=== PATIENT | female | born 1955 | race Caucasian/White ===

== ENCOUNTER 2021-03-09 11:08 | Emergency (ER) | payer MEDICARE ==
[2021-03-09 11:29] VITALS: TEMP 98.3
[2021-03-09] MEDS ORDERED: SODIUM CHLORIDE 0.9% 1,000 ML IV ONE (11:49)
--- NOTE | 2021-03-09 11:54 | ED ---
General Adult HPI - General Chief complaint: Altered Mental Status Stated complaint: altered Time Seen by Provider: 03/09/21 11:28 Source: patient, EMS, RN notes reviewed Mode of arrival: EMS Limitations: no limitations - History of Present Illness Initial comments: Patient is a pleasant 65-year-old female presenting to the emergency department with change in mental status. Patient does have dementia and is not been taking her medications recently. Patient reportedly is also becoming more aggressive at home. Patient states she feels fine and has no complaints. Patient is unclear why she is here. Patient states other than today she has been taking her medications. - Related Data Home Medications Medication Instructions Recorded Confirmed Donepezil [Aricept] 10 mg PO DAILY 03/09/21 03/09/21 FLUoxetine HCL [PROzac] 20 mg PO DAILY 03/09/21 03/09/21 Memantine [Namenda] 10 mg PO BID 03/09/21 03/09/21 Allergies Allergy/AdvReac Type Severity Reaction Status Date / Time No Known Allergies Allergy Verified 03/09/21 12:55 Review of Systems ROS Statement: Those systems with pertinent positive or pertinent negative responses have been documented in the HPI. ROS Other: All systems not noted in ROS Statement are negative. Constitutional: Denies: fever Eyes: Denies: eye pain ENT: Denies: ear pain Respiratory: Denies: cough Cardiovascular: Denies: chest pain Endocrine: Denies: fatigue Gastrointestinal: Denies: abdominal pain Genitourinary: Denies: dysuria Musculoskeletal: Denies: back pain Skin: Denies: rash Neurological: Reports: confusion. Denies: weakness Psychiatric: Reports: as per HPI Past Medical History Past Medical History: Dementia, Hypertension History of Any Multi-Drug Resistant Organisms: None Reported Past Surgical History: Unable to Obtain Past Psychological History: No Psychological Hx Reported Smoking Status: Never smoker Past Alcohol Use History: None Reported Past Drug Use History: Marijuana General Exam Limitations: no limitations General appearance: alert, in no apparent distress Head exam: Present: normocephalic Eye exam: Present: normal appearance, PERRL, EOMI. Absent: nystagmus ENT exam: Present: normal oropharynx Neck exam: Present: normal inspection Respiratory exam: Present: normal lung sounds bilaterally Cardiovascular Exam: Present: regular rate, normal rhythm GI/Abdominal exam: Present: soft. Absent: tenderness Extremities exam: Present: normal inspection, full ROM. Absent: tenderness Neurological exam: Present: alert, CN II-XII intact. Absent: motor sensory def icit Expanded Neurological exam: Present: protecting the airway Patient oriented to: Present: person, place. Absent: time Speech: Present: fluid speech Cranial nerves: EOM's Intact: Normal Motor strength exam: RUE: 5, LUE: 5, RLE: 5, LLE: 5 Eye Response: (4) open spontaneously Motor Response: (6) obeys commands Verbal Response: (4) confused conversation Psychiatric exam: Present: normal affect, normal mood Skin exam: Present: normal color Course Vital Signs 03/09/21 03/09/21 11:26 13:55 Temperature 98.3 F Pulse Rate 80 79 Respiratory 18 16 Rate Blood Pressure 137/97 138/89 O2 Sat by Pulse 99 99 Oximetry EKG Findings - EKG Comments: EKG Findings:: Sinus rhythm with a rate of 68. HI 164. QRS 102. QT 454. QTC 42. Left axis. LVH criteria. No acute ST change. Medical Decision Making - Medical Decision Making Patient has been somewhat restless in the emergency department otherwise acting appropriately. Patient seen by mental health services who did not feel that patient meets criteria for psychiatric inpatient care. Case also discussed with Dr. Jalloh who also feels patient does not necessitate inpatient medical care. 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 They will be provided resources to home with. - Lab Data Result diagrams: 03/09/21 11:52 03/09/21 11:52 Lab Results 03/09/21 03/09/21 03/09/21 Range/Units 11:34 11:35 11:52 WBC 5.8 (3.8-10.6) k/uL RBC 4.46 (3.80-5.40) m/uL Hgb 14.0 (11.4-16.0) gm/dL Hct 39.9 (34.0-46.0) % MCV 89.4 (80.0-100.0) fL MCH 31.3 (25.0-35.0) pg MCHC 35.0 (31.0-37.0) g/dL RDW 12.9 (11.5-15.5) % Plt Count 232 (150-450) k/uL MPV 7.6 Neutrophils % 40 % Lymphocytes % 50 % Monocytes % 6 % Eosinophils % 1 % Basophils % 1 % Neutrophils # 2.3 (1.3-7.7) k/uL Lymphocytes # 2.9 (1.0-4.8) k/uL Monocytes # 0.3 (0-1.0) k/uL Eosinophils # 0.1 (0-0.7) k/uL Basophils # 0.1 (0-0.2) k/uL PT (9.0-12.0) sec INR (<1.2) APTT (22.0-30.0) sec Sodium (137-145) mmol/L Potassium (3.5-5.1) mmol/L Chloride (98-107) mmol/L Carbon Dioxide (22-30) mmol/L Anion Gap mmol/L BUN (7-17) mg/dL Creatinine (0.52-1.04) mg/dL Est GFR (CKD-EPI)AfAm (>60 ml/min/1.73 sqM) Est GFR (CKD-EPI)NonAf (>60 ml/min/1.73 sqM) Glucose (74-99) mg/dL Calcium (8.4-10.2) mg/dL Total Bilirubin (0.2-1.3) mg/dL AST (14-36) U/L ALT (4-34) U/L Alkaline Phosphatase (38-126) U/L Troponin I (0.000-0.034) ng/mL Total Protein (6.3-8.2) g/dL Albumin (3.5-5.0) g/dL Urine Color Light Red Urine Appearance Cloudy H (Clear) Urine pH 6.0 (5.0-8.0) Ur Specific [place] 1.032 (1.001-1.035) Urine Protein 1+ H (Negative) Urine Glucose (UA) Negative (Negative) Urine Ketones Negative (Negative) Urine Blood Moderate H (Negative) Urine Nitrite Negative (Negative) Urine Bilirubin Negative (Negative) Urine Urobilinogen 2.0 (<2.0) mg/dL Ur Leukocyte Esterase Small H (Negative) Urine RBC 2 (0-5) /hpf Urine WBC 4 (0-5) /hpf Ur Squamous Epith Cells 13 H (0-4) /hpf Urine Bacteria Rare H (None) /hpf Urine Mucus Many H (None) /hpf Urine Opiates Screen Not Detected (NotDetected) Ur Oxycodone Screen Not Detected (NotDetected) Urine Methadone Screen Not Detected (NotDetected) Ur Propoxyphene Screen Not Detected (NotDetected) Ur Barbiturates Screen Not Detected (NotDetected) U Tricyclic Antidepress Not Detected (NotDetected) Ur Phencyclidine Scrn Not Detected (NotDetected) Ur Amphetamines Screen Not Detected (NotDetected) U Methamphetamines Scrn Not Detected (NotDetected) U Benzodiazepines Scrn Not Detected (NotDetected) Urine Cocaine Screen Not Detected (NotDetected) U Marijuana (THC) Screen Detected H (NotDetected) Serum Alcohol mg/dL 03/09/21 03/09/21 03/09/21 Range/Units 11:52 11:52 11:52 WBC (3.8-10.6) k/uL RBC (3.80-5.40) m/uL Hgb (11.4-16.0) gm/dL Hct (34.0-46.0) % MCV (80.0-100.0) fL MCH (25.0-35.0) pg MCHC (31.0-37.0) g/dL RDW (11.5-15.5) % Plt Count (150-450) k/uL MPV Neutrophils % % Lymphocytes % % Monocytes % % Eosinophils % % Basophils % % Neutrophils # (1.3-7.7) k/uL Lymphocytes # (1.0-4.8) k/uL Monocytes # (0-1.0) k/uL Eosinophils # (0-0.7) k/uL Basophils # (0-0.2) k/uL PT 11.1 (9.0-12.0) sec INR 1.0 (<1.2) APTT 24.4 (22.0-30.0) sec Sodium 136 L (137-145) mmol/L Potassium 3.6 (3.5-5.1) mmol/L Chloride 104 (98-107) mmol/L Carbon Dioxide 21 L (22-30) mmol/L Anion Gap 11 mmol/L BUN 12 (7-17) mg/dL Creatinine 0.85 (0.52-1.04) mg/dL Est GFR (CKD-EPI)AfAm 83 (>60 ml/min/1.73 sqM) Est GFR (CKD-EPI)NonAf 72 (>60 ml/min/1.73 sqM) Glucose 90 (74-99) mg/dL Calcium 9.5 (8.4-10.2) mg/dL Total Bilirubin 1.1 (0.2-1.3) mg/dL AST 26 (14-36) U/L ALT 11 (4-34) U/L Alkaline Phosphatase 62 (38-126) U/L Troponin I 0.013 (0.000-0.034) ng/mL Total Protein 7.9 (6.3-8.2) g/dL Albumin 4.5 (3.5-5.0) g/dL Urine Color Urine Appearance (Clear) Urine pH (5.0-8.0) Ur Specific [place] (1.001-1.035) Urine Protein (Negative) Urine Glucose (UA) (Negative) Urine Ketones (Negative) Urine Blood (Negative) Urine Nitrite (Negative) Urine Bilirubin (Negative) Urine Urobilinogen (<2.0) mg/dL Ur Leukocyte Esterase (Negative) Urine RBC (0-5) /hpf Urine WBC (0-5) /hpf Ur Squamous Epith Cells (0-4) /hpf Urine Bacteria (None) /hpf Urine Mucus (None) /hpf Urine Opiates Screen (NotDetected) Ur Oxycodone Screen (NotDetected) Urine Methadone Screen (NotDetected) Ur Propoxyphene Screen (NotDetected) Ur Barbiturates Screen (NotDetected) U Tricyclic Antidepress (NotDetected) Ur Phencyclidine Scrn (NotDetected) Ur Amphetamines Screen (NotDetected) U Methamphetamines Scrn (NotDetected) U Benzodiazepines Scrn (NotDetected) Urine Cocaine Screen (NotDetected) U Marijuana (THC) Screen (NotDetected) Serum Alcohol <10 mg/dL - Radiology Data Radiology results: report reviewed (CT brain shows degenerative and nonspecific changes), image reviewed (Chest x-ray shows cardiomegaly. Questionable left upper lobe nodule.) Disposition Clinical Impression: Dementia Disposition: HOME SELF-CARE Condition: Stable Instructions (If sedation given, give patient instructions): Altered Mental Status (ED), Dementia (ED) Additional Instructions: You will need follow-up for questionable left-sided lung nodule. Please do follow-up to primary care physician in the next day or 2 for recheck. Return for fever, altered mental status, worsening or changing symptoms or other concerns. Please take your medications as prescribed. Is patient prescribed a controlled substance at d/c from ED?: No Referrals: Manuel Sánchez MD [STAFF PHYSICIAN] - 1-2 days Time of Disposition: 14:08
[2021-03-09 11:59] LABS: Appearance,Urine Cloudy (Clear); Bacteria,Urine Rare /hpf; Bilirubin,Urine Negative (Negative); Blood,Urine Moderate (Negative); Color,Urine Light Red; Glucose,Urine (UA) Negative (Negative); Ketones,Urine Negative (Negative); Leukocyte Esterase,Urine Small (Negative); Mucus,Urine Many /hpf; Nitrite,Urine Negative (Negative); Protein,Urine 1+ (Negative); RBC,Urine 2 /hpf (0-5); Specific Gravity,Urine 1.032 (1.001-1.035); Squamous Epithelial Cell,Urine 13 /hpf (0-4); WBC,Urine 4 /hpf (0-5)
[2021-03-09 12:06] LABS: Basophils # (A) 0.1 k/uL (0-0.2); Basophils % (A) 1 %; Eosinophils # (A) 0.1 k/uL (0-0.7); Eosinophils % (A) 1 %; HCT 39.9 % (34.0-46.0); Lymphocytes # (A) 2.9 k/uL (1.0-4.8); Lymphocytes % (A) 50 %; MCH 31.3 pg (25.0-35.0); MCV 89.4 fL (80.0-100.0); Mean Platelet Volume 7.6; Monocytes # (A) 0.3 k/uL (0-1.0); Monocytes % (A) 6 %; Neutrophils # (A) 2.3 k/uL (1.3-7.7); Neutrophils % (A) 40 %; Platelet Count 232 k/uL (150-450); RBC 4.46 m/uL (3.80-5.40); RDW 12.9 % (11.5-15.5); WBC 5.8 k/uL (3.8-10.6)
[2021-03-09 12:08] LABS: Amphetamine Screen,Urine Not Detected (NotDetected); Barbiturate Screen,Urine Not Detected (NotDetected); Benzodiazepines Screen,Urine Not Detected (NotDetected); Cocaine Screen,Urine Not Detected (NotDetected); Methadone Screen, Urine Not Detected (NotDetected); Opiate Screen,Urine Not Detected (NotDetected); Oxycodone Screen, Urine Not Detected (NotDetected); Phencyclidine Screen,Urine Not Detected (NotDetected); Tricyclic Antidepressant,Urine Not Detected (NotDetected); Urn Cannabinoid Scrn Detected (NotDetected)
[2021-03-09 12:15] LABS: Partial Thromboplastin Time 24.4 sec (22.0-30.0); Prothrombin Time 11.1 sec (9.0-12.0)
[2021-03-09 12:19] LABS: ALT 11 U/L (4-34); African American GFR (CKD) 83 (>60 ml/min/1.73 sqM); Albumin 4.5 g/dL (3.5-5.0); Alcohol <10 mg/dL; Anion Gap 11 mmol/L; Blood Urea Nitrogen 12 mg/dL (7-17); Calcium 9.5 mg/dL (8.4-10.2); Carbon Dioxide 21 mmol/L (22-30); Chloride 104 mmol/L (98-107); Glucose 90 mg/dL (74-99); Non-African American GFR(CKD) 72 (>60 ml/min/1.73 sqM); Sodium 136 mmol/L (137-145); Total Bilirubin 1.1 mg/dL (0.2-1.3); Total Protein 7.9 g/dL (6.3-8.2)
--- NOTE | 2021-03-09 12:25 | XR ---
EXAMINATION TYPE: XR chest 2V DATE OF EXAM: 03/09/2021 COMPARISON: NONE TECHNIQUE: PA and lateral views submitted. HISTORY: Altered mental status FINDINGS: The lungs are clear and there is no pneumothorax, pleural effusion, or focal pneumonia. The heart i s enlarged. There is hyperinflation and degenerative change of the spine. Vague nodular density left upper lobe measuring 1 cm. IMPRESSION: 1. Cardiomegaly without acute infiltrate or overt failure. However, vague nodular density left upper lobe treatment be evaluated with a short-term follow-up CT of the chest to exclude pulmonary nodule v ersus summation.
[2021-03-09 12:27] LABS: Potassium 3.6 mmol/L (3.5-5.1)
[2021-03-09 12:28] LABS: AST 26 U/L (14-36); Alkaline Phosphatase 62 U/L (38-126)
--- NOTE | 2021-03-09 12:33 | CT ---
EXAMINATION TYPE: CT brain wo con DATE OF EXAM: 03/09/2021 COMPARISON: None HISTORY: ams, confusion CT DLP: 1182.4 mGycm Automated exposure control for dose reduction was used. FINDINGS: Moderate generalized degenerative change low-attenuation white matter. No midline shift or mass effect. No acute hemorrhage. Calvarium intact. Orbits. Craniocervical junction maintained. Sella turcica is normal. Intracranial a therosclerotic changes noted. IMPRESSION: DEGENERATIVE AND NONSPECIFIC WHITE MATTER CHANGES NO ACUTE HEMORRHAGE OR MASS EFFECT. IF CLINICAL CONCERN FOR ACUTE ISCHEMIA CORRELATE WITH MRI CLINICALLY WARRANTED.
[2021-03-09 13:56] VITALS: BP 138/89; PULSE 79; RESP 16
== END 2021-03-09 14:32 | disposition home or self-care (01) ==
LOC: EC 11:08
DX: F03.90 Unspecified dementia, unspecified severity, without behavioral disturbance, psychotic disturbance, mood disturbance, and anxiety (principal); I10 Essential (primary) hypertension; F12.90 Cannabis use, unspecified, uncomplicated; Z79.899 Other long term (current) drug therapy
CPT/HCPCS: 36415; 93005; 80053; 84484; 85025; 85610; 85730; 81001; 80306; 71046; 70450; 99285; G0480; 80320

== ENCOUNTER 2021-05-19 06:09 | Inpatient (IN) | payer MEDICARE ==
[2021-05-19] MEDS ORDERED: SODIUM CHLORIDE 0.9% 1,000 ML IV STA (06:21)
--- NOTE | 2021-05-19 06:31 | ED ---
Altered Mental Status HPI - General Chief Complaint: Recheck/Abnormal Lab/Rx Stated Complaint: Altered mental status Time Seen by Provider: 05/19/21 06:16 Source: EMS, RN notes reviewed, old records reviewed Mode of arrival: EMS Limitations: altered mental status - Related Data Home Medications Medication Instructions Recorded Confirmed Donepezil [Aricept] 10 mg PO DAILY 03/09/21 03/09/21 FLUoxetine HCL [PROzac] 20 mg PO DAILY 03/09/21 03/09/21 Memantine [Namenda] 10 mg PO BID 03/09/21 03/09/21 Allergies Allergy/AdvReac Type Severity Reaction Status Date / Time No Known Allergies Allergy Verified 05/19/21 06:19 Review of Systems ROS Statement: Those systems with pertinent positive or pertinent negative responses have been documented in the HPI. ROS Other: All systems not noted in ROS Statement are negative. Past Medical History Past Medical History: Dementia, Hypertension History of Any Multi-Drug Resistant Organisms: None Reported Past Surgical History: Unable to Obtain Past Psychological History: No Psychological Hx Reported Smoking Status: Never smoker Past Alcohol Use History: None Reported Past Drug Use History: Marijuana General Exam - General Exam Comments Initial Comments: A and 0 times one history of same, dementia Limitations: altered mental status General appearance: alert, in no apparent distress Head exam: Present: atraumatic, normocephalic, normal inspection Eye exam: Present: normal appearance, PERRL, EOMI. Absent: scleral icterus, conjunctival injection, periorbital swelling ENT exam: Present: normal exam, mucous membranes moist Neck exam: Present: normal inspection. Absent: tenderness, meningismus, lymphadenopathy Respiratory exam: Present: normal lung sounds bilaterally. Absent: respiratory distress, wheezes, rales, rhonchi, stridor Cardiovascular Exam: Present: regular rate, normal rhythm, normal heart sounds. Absent: systolic murmur, diastolic murmur, rubs, gallop, clicks GI/Abdominal exam: Present: soft, normal bowel sounds. Absent: distended, tenderness, guarding, rebound, rigid Extremities exam: Present: normal inspection, full ROM, normal capillary refill. Absent: tenderness, pedal edema, joint swelling, calf tenderness Back exam: Present: normal inspection Neurological exam: Present: alert, oriented X3, CN II-XII intact Psychiatric exam: Present: normal affect, normal mood Skin exam: Present: warm, dry, intact, normal color. Absent: rash Course Vital Signs 05/19/21 06:15 Temperature 98 F Pulse Rate 87 Respiratory 18 Rate Blood Pressure 98/76 O2 Sat by Pulse 100 Oximetry - Reevaluation(s) Reevaluation #1: 05/19/21 07:19 Medical record is reviewed Reevaluation #2: 05/19/21 07:19 No change in patient's appearance of symptoms here in the ER - Consultations Consultation #1: Spoke with sound physicians who agree to admit the patient Medical Decision Making - Medical Decision Making 65 female today for evaluation of altered mental status and appropriate behavior severe dementia patient unable to provide history patient's is in the hospital unable help take care of patient. Patient be admitted for continued medical evaluation and social console - Lab Data Result diagrams: 05/19/21 06:36 Lab Results 05/19/21 05/19/21 Range/Units 06:36 06:36 WBC 4.2 (3.8-10.6) k/uL RBC 3.65 L (3.80-5.40) m/uL Hgb 11.7 (11.4-16.0) gm/dL Hct 34.6 (34.0-46.0) % MCV 94.6 (80.0-100.0) fL MCH 32.1 (25.0-35.0) pg MCHC 34.0 (31.0-37.0) g/dL RDW 15.7 H (11.5-15.5) % Plt Count 294 (150-450) k/uL MPV 7.1 Neutrophils % 53 % Lymphocytes % 34 % Monocytes % 7 % Eosinophils % 2 % Basophils % 1 % Neutrophils # 2.2 (1.3-7.7) k/uL Lymphocytes # 1.4 (1.0-4.8) k/uL Monocytes # 0.3 (0-1.0) k/uL Eosinophils # 0.1 (0-0.7) k/uL Basophils # 0.1 (0-0.2) k/uL PT 11.1 (9.0-12.0) sec INR 1.0 (<1.2) APTT 25.1 (22.0-30.0) sec - EKG Data -: EKG Interpreted by Me (EKG is sinus rhythm 76 FL 175 QRS 80 QTC 366) Disposition Clinical Impression: Altered mental state, Dementia, Weakness, Unsatisfactory living conditions Disposition: ADMITTED IP TO THIS HOSP Condition: Fair Is patient prescribed a controlled substance at d/c from ED?: No Referrals: None,Stated [Primary Care Provider] - 1-2 days
[2021-05-19 06:55] LABS: Basophils # (A) 0.1 k/uL (0-0.2); Basophils % (A) 1 %; Eosinophils # (A) 0.1 k/uL (0-0.7); Eosinophils % (A) 2 %; HCT 34.6 % (34.0-46.0); HGB 11.7 gm/dL (11.4-16.0); Lymphocytes # (A) 1.4 k/uL (1.0-4.8); Lymphocytes % (A) 34 %; MCH 32.1 pg (25.0-35.0); MCV 94.6 fL (80.0-100.0); Mean Platelet Volume 7.1; Monocytes # (A) 0.3 k/uL (0-1.0); Monocytes % (A) 7 %; Neutrophils # (A) 2.2 k/uL (1.3-7.7); Neutrophils % (A) 53 %; Platelet Count 294 k/uL (150-450); RBC 3.65 m/uL (3.80-5.40); RDW 15.7 % (11.5-15.5); WBC 4.2 k/uL (3.8-10.6)
[2021-05-19 07:06] LABS: Partial Thromboplastin Time 25.1 sec (22.0-30.0); Prothrombin Time 11.1 sec (9.0-12.0)
[2021-05-19] MEDS ORDERED: ONDANSETRON 4 MG/2 ML VIAL IVP PRN (07:17)
[2021-05-19] MEDS ORDERED: NALOXONE 0.4 MG/ML 1 ML VIAL IV PRN ×2 (07:17→14:50)
[2021-05-19] MEDS ORDERED: LORazepam 2 MG/ML INJ IV PRN (07:17)
[2021-05-19 07:21] LABS: ALT 15 U/L (4-34); AST 29 U/L (14-36); African American GFR (CKD) >90 (>60 ml/min/1.73 sqM); Albumin 3.3 g/dL (3.5-5.0); Alcohol <10 mg/dL; Alkaline Phosphatase 63 U/L (38-126); Anion Gap 3 mmol/L; Blood Urea Nitrogen 15 mg/dL (7-17); Calcium 8.9 mg/dL (8.4-10.2); Carbon Dioxide 26 mmol/L (22-30); Chloride 109 mmol/L (98-107); Glucose 89 mg/dL (74-99); Non-African American GFR(CKD) >90 (>60 ml/min/1.73 sqM); Potassium 3.5 mmol/L (3.5-5.1); Sodium 138 mmol/L (137-145); Total Bilirubin 1.2 mg/dL (0.2-1.3); Total Protein 6.5 g/dL (6.3-8.2)
[2021-05-19] MEDS ORDERED: PANTOPRAZOLE 40 MG/10 ML VIAL IV SCH (09:00)
[2021-05-19 09:07] LABS: Glucose,Whole Blood 377 mg/dL (75-99)
[2021-05-19 11:32] LABS: Amorphous Sediment,Urine Few /hpf; Appearance,Urine Turbid (Clear); Bilirubin,Urine Negative (Negative); Blood,Urine Negative (Negative); Color,Urine Yellow; Glucose,Urine (UA) Negative (Negative); Ketones,Urine Trace (Negative); Leukocyte Esterase,Urine Moderate (Negative); Mucus,Urine Many /hpf; Nitrite,Urine Negative (Negative); Protein,Urine Trace (Negative); RBC,Urine 5 /hpf (0-5); Specific Gravity,Urine 1.017 (1.001-1.035); Squamous Epithelial Cell,Urine 1 /hpf (0-4); WBC,Urine 9 /hpf (0-5)
[2021-05-19 11:35] LABS: Amphetamine Screen,Urine Not Detected (NotDetected); Barbiturate Screen,Urine Not Detected (NotDetected); Benzodiazepines Screen,Urine Not Detected (NotDetected); Cocaine Screen,Urine Not Detected (NotDetected); Methadone Screen, Urine Not Detected (NotDetected); Opiate Screen,Urine Not Detected (NotDetected); Oxycodone Screen, Urine Not Detected (NotDetected); Phencyclidine Screen,Urine Not Detected (NotDetected); Tricyclic Antidepressant,Urine Not Detected (NotDetected); Urn Cannabinoid Scrn Detected (NotDetected)
[2021-05-19 13:45] LABS: Glucose,Whole Blood 139 mg/dL (75-99)
[2021-05-19] MEDS ORDERED: ACETAMINOPHEN TAB 325 MG TAB PO PRN (14:50)
[2021-05-19] MEDS ORDERED: clonazePAM 0.5 MG TAB PO PRN ×2 (15:01→15:16)
[2021-05-19] MEDS ORDERED: RX INFO: IV CONTRAST WAS GIVEN 1 EACH MISC MISCELLANE PRN (15:08)
[2021-05-19] MEDS ORDERED: HALOPERIDOL LACTATE 5 MG/ML 1 ML VIAL IM PRN (15:13)
--- NOTE | 2021-05-19 15:24 | P.HPIM ---
History of Present Illness H&P Date: 05/19/21 Chief Complaint: Aigitation Patient was brought to the emergency EMS. She is a poor historian. Patient was diagnosed with advanced dementia and years ago. Her son called ambulance because she was very agitated and refused to take her medication. She is only alert and oriented to herself. She denied any chest pain or shortness of breath. She denies any abdominal pain. She denies nausea vomiting or diarrhea or constipation. Patient denied any fever or chills or cough. Blood work emergency room is unremarkable. No imaging studies done in the brain. Skin was positive for marijuana. Patient stated that she go through marijuana in her backyard. Other than that the patient not able to give me good history of present is secondary to her psychosis and agitation. Her stepdaughter and her son the patient was admitted to [facility] and February and she was discharged to inpatient psych unit in [place] . Patient was discharged home after 1 week. was the main caregiver is currently in the ICU in another hospital. Seems like the patient's son doesn't get along with his carloz. Carloz wants to take the patient home and take care of her. Pending evaluation by psychiatry and manager social media to address safe discharge plan. Review of Systems All 14 review of systems evaluated and all negative except for above. Past Medical History Past Medical History: Dementia, Hypertension History of Any Multi-Drug Resistant Organisms: None Reported Past Surgical History: Unable to Obtain Past Psychological History: No Psychological Hx Reported Smoking Status: Never smoker Past Alcohol Use History: None Reported Past Drug Use History: Marijuana Medications and Allergies Home Medications Medication Instructions Recorded Confirmed Type Memantine [Namenda] 10 mg PO BID 03/09/21 05/19/21 History Famotidine 10 mg PO DAILY 05/19/21 05/19/21 History Multivit-Min/Iron/Folic/Lutein 1 tab PO DAILY 05/19/21 05/19/21 History [Centrum Silver Women Tablet] Rivastigmine 4.6MG/24Hr Patch 1 patch TOPICAL HS 05/19/21 05/19/21 History [Exelon 4.6MG/24Hr Patch] amLODIPine BESYLATE 10 mg PO DAILY 05/19/21 05/19/21 History clonazePAM 0.5 - 1 mg PO Q12HR PRN 05/19/21 05/19/21 History lisinopriL 10 mg PO DAILY 05/19/21 05/19/21 History risperiDONE 0.25 mg PO BID 05/19/21 05/19/21 History traZODone HCL 50 mg PO HS 05/19/21 05/19/21 History Allergies Allergy/AdvReac Type Severity Reaction Status Date / Time No Known Allergies Allergy Verified 05/19/21 06:19 Physical Exam Vitals: Vital Signs Temp Pulse Pulse Resp BP BP Pulse Ox 05/19/21 09:00 98.2 F 98 16 102/68 100 05/19/21 08:08 85 16 111/78 99 05/19/21 06:15 98 F 87 18 98/76 100 Intake and Output 05/19/21 05/19/21 05/19/21 06:59 14:59 22:59 Other: Weight 63.957 kg General: Confused. non toxic, no distress, appears older than stated age Derm: warm, dry Head: atraumatic, normocephalic, symmetric Eyes: EOMI, no lid lag, anicteric sclera Mouth: no lip lesion, mucus membranes moist Cardiovascular: S1S2 reg, no murmur, positive posterior tibial pulse bilateral, Lungs: CTA bilateral, no rhonchi, no rales , no accessory muscle use Abdominal: soft, nontender to palpation, no guarding, no appreciable organomegaly Ext: no gross muscle atrophy, no edema, no contractures Neuro: CN II-XI grossly intact, no focal neuro deficits Psych: Alert, oriented only to herself. Restless and agitated Results CBC & Chem 7: 05/19/21 06:36 05/19/21 06:36 Labs: Abnormal Lab Results - Last 24 Hours (Table) 05/19/21 05/19/21 05/19/21 Range/Units 06:36 06:36 06:36 RBC 3.65 L (3.80-5.40) m/uL RDW 15.7 H (11.5-15.5) % Chloride 109 H (98-107) mmol/L POC Glucose (mg/dL) (75-99) mg/dL Albumin 3.3 L (3.5-5.0) g/dL Urine Appearance Turbid H (Clear) Urine Protein Trace H (Negative) Urine Ketones Trace H (Negative) Ur Leukocyte Esterase Moderate H (Negative) Urine WBC 9 H (0-5) /hpf Amorphous Sediment Few H (None) /hpf Urine Mucus Many H (None) /hpf U Marijuana (THC) Screen Detected H (NotDetected) 05/19/21 05/19/21 Range/Units 09:05 13:43 RBC (3.80-5.40) m/uL RDW (11.5-15.5) % Chloride (98-107) mmol/L POC Glucose (mg/dL) 377 H 139 H (75-99) mg/dL Albumin (3.5-5.0) g/dL Urine Appearance (Clear) Urine Protein (Negative) Urine Ketones (Negative) Ur Leukocyte Esterase (Negative) Urine WBC (0-5) /hpf Amorphous Sediment (None) /hpf Urine Mucus (None) /hpf U Marijuana (THC) Screen (NotDetected) Assessment and Plan Assessment: Assessment and plan: #Advanced dementia with aggressive behavior -Underlying advanced dementia -Resume home medications -CT of the head ordered -Check TSH and B12 -Unremarkable urinalysis -Neuro and psych evaluation -Worker evaluation for safe discharge plan #Substance abuse -Patient admitted that she smokes marijuana #Hypertension -Blood pressure seems to be soft hold Norvasc and resume lisinopril tomorrow #COPD without exacerbation #DVT prophylaxis patient is ambulatory
--- NOTE | 2021-05-19 16:01 | CT ---
EXAMINATION TYPE: CT brain wo con DATE OF EXAM: 05/19/2021 COMPARISON: 03/09/2021 HISTORY: Altered mental status, history of dementia. CT DLP: 1064.3 mGycm Automated exposure control for dose reduction was used. There is cerebral cortical atrophy. There is widening of the subdural space over the right cerebral h emisphere. There is slight shift of the midline to the left side. Fluid in the subdural space is low attenuation. No evidence of acute subdural hemorrhage. The calvarium is intact. Skull base is intact. There is normal aeration of the mastoid sinuses. Sella turcica appears normal. IMPRESSION: There is developing right sided subdural hygroma with 12 mm thickness which is a change compared to o ld exam. Follow-up recommended. There is cerebral atrophy. No evidence of acute intracranial hemorrha ge.
[2021-05-19] MEDS: MELATONIN 3 MG TABLET PO PRN (21:01)
[2021-05-19] MEDS: risperiDONE 0.25 MG TAB PO SCH (21:01)
[2021-05-19] MEDS: MEMANTINE 10 MG TAB PO SCH (21:01)
[2021-05-19] MEDS: RIVASTIGMINE 4.6MG/24HR PATCH TRANSDERM SCH (21:01)
[2021-05-19] MEDS: traZODone HCL 50 MG TAB PO SCH (21:01)
[2021-05-20] MEDS: MULTIVITAMINS, THERA 1 EACH TAB PO SCH (07:40)
[2021-05-20] MEDS: PANTOPRAZOLE 40 MG TABLET PO SCH (07:40)
[2021-05-20] MEDS: risperiDONE 0.25 MG TAB PO SCH (07:40)
[2021-05-20] MEDS: MEMANTINE 10 MG TAB PO SCH ×2 (07:41→21:14)
[2021-05-20] MEDS ORDERED: lisinopriL 10 MG TAB PO SCH (09:00)
[2021-05-20 11:45] LABS: Basophils # (A) 0.06 X 10*3/uL (0.00-0.10); Basophils % (A) 0.9 %; Eosinophils # (A) 0.15 X 10*3/uL (0.04-0.35); Eosinophils % (A) 2.3 %; HCT 33.5 % (37.2-46.3); HGB 10.4 g/dL (12.0-15.0); Immature Grans, Automated 0.2 %; Lymphocytes # (A) 2.95 X 10*3/uL (0.90-5.00); Lymphocytes % (A) 44.3 %; MCH 30.5 pg (27.0-32.0); MCV 98.2 fL (80.0-97.0); Mean Platelet Volume 9.9 fL (9.5-12.2); Monocytes # (A) 0.62 X 10*3/uL (0.20-1.00); Monocytes % (A) 9.3 %; NRBC Per 100 WBC 0 /100 WBCS (0.0-0.0); Neutrophils # (A) 2.87 X 10*3/uL (1.80-7.70); Platelet Count 297 X 10*3/uL (140-440); RBC 3.41 X 10*6/uL (4.10-5.20); RDW 16.8 % (11.5-14.5); WBC 6.66 X 10*3/uL (4.50-10.00)
[2021-05-20 11:53] LABS: African American GFR (CKD) 101.8 (60.0-200.0); Albumin 3.7 g/dL (3.8-4.9); Albumin/Globulin Ratio 1.48 (1.60-3.17); Anion Gap 9.8 mmol/L (10.00-18.00); BUN/Creat Ratio 21.65 Ratio (12.00-20.00); Blood Urea Nitrogen 15.5 mg/dL (9.0-27.0); Calcium 9.3 mg/dL (8.7-10.3); Carbon Dioxide 25.4 mmol/L (20.0-27.5); Globulin 2.5 g/dL (1.6-3.3); Non-African American GFR(CKD) 87.9 (60.0-200.0); Potassium 3.6 mmol/L (3.5-5.5); Total Bilirubin 0.8 mg/dL (0.30-1.20); Total Protein 6.1 g/dL (6.2-8.2)
--- NOTE | 2021-05-20 15:51 | P.PN ---
Subjective Progress Note Date: 05/20/21 H&P Date: 05/19/21 Chief Complaint: Aigitation Patient was brought to the emergency EMS. She is a poor historian. Patient was diagnosed with advanced dementia and years ago. Her son called ambulance because she was very agitated and refused to take her medication. She is only alert and oriented to herself. She denied any chest pain or shortness of br eath. She denies any abdominal pain. She denies nausea vomiting or diarrhea or constipation. Patient denied any fever or chills or cough. Blood work emergency room is unremarkable. No imaging studies done in the brain. Skin was positive for marijuana. Patient stated that she go through marijuana in her backyard. Other than that the patient not able to give me good history of present is secondary to her psychosis and agitation. Her stepdaughter and her son the patient was admitted to [facility] and February and she was discharged to inpatient psych unit in [place] . Patient was discharged home after 1 week. was the main caregiver is currently in the ICU in another hospital. Seems like the patient's son doesn't get along with his carloz. Carloz wants to take the patient home and take care of her. Pending evaluation by psychiatry and social group worker to address safe discharge plan. Interval history: 05/20 patient was seen and examined at the bedside. She is alert oriented to herself. She denied any burning with urination or increased frequency. She denies any chest pain and shortness of breath. Otherwise no acute reported changes overnight. Objective - Vital Signs Vital signs: Vital Signs Temp 97.6 F 05/20/21 12:18 Pulse 92 05/20/21 12:18 Resp 18 05/20/21 12:18 BP 108/68 05/20/21 12:18 Pulse Ox 97 05/20/21 12:18 Intake & Output 05/19/21 05/20/21 05/20/21 17:59 06:59 18:59 Intake Total Balance Weight Intake: Oral Other: Voiding Method Toilet # Voids - Exam General: Confused. non toxic, no distress, appears older than stated age Derm: warm, dry Head: atraumatic, normocephalic, symmetric Eyes: EOMI, no lid lag, anicteric sclera Mouth: no lip lesion, mucus membranes moist Cardiovascular: S1S2 reg, no murmur, positive posterior tibial pulse bilateral, Lungs: CTA bilateral, no rhonchi, no rales , no accessory muscle use Abdominal: soft, nontender to palpation, no guarding, no appreciable organomegaly Ext: no gross muscle atrophy, no edema, no contractures Neuro: CN II-XI grossly intact, no focal neuro deficits Psych: Alert, oriented only to herself. Restless and agitated - Labs CBC & Chem 7: 05/20/21 07:16 05/20/21 07:16 Labs: Abnormal Lab Results - Last 24 Hours (Table) 05/20/21 05/20/21 Range/Units 07:16 07:16 RBC 3.41 L (4.10-5.20) X 10*6/uL Hgb 10.4 L (12.0-15.0) g/dL Hct 33.5 L (37.2-46.3) % MCV 98.2 H (80.0-97.0) fL MCHC 31.0 L (32.0-37.0) g/dL RDW 16.8 H (11.5-14.5) % Anion Gap 9.80 L (10.00-18.00) mmol/L BUN/Creatinine Ratio 21.65 H (12.00-20.00) Ratio Total Protein 6.1 L (6.2-8.2) g/dL Albumin 3.7 L (3.8-4.9) g/dL Albumin/Globulin Ratio 1.48 L (1.60-3.17) g/dL Assessment and Plan Assessment: Assessment and plan: #Advanced dementia with aggressive behavior -Underlying advanced dementia -Resume home medications -CT of the head: Showed developing right sided subdural hygroma with 12 mm thickness which is changed compared to old exam. -T normal SH and B12 -Unremarkable urinalysis -Neuro and psych evaluation -Adult protective service was notified -Social workerWorker evaluation for safe discharge plan #Substance abuse -Patient admitted that she smokes marijuana #Hypertension -Patient blood pressure is controlled without medication will discontinue lisinopril #COPD without exacerbation #DVT prophylaxis patient is ambulatory
--- NOTE | 2021-05-20 16:49 | P.CNNES ---
History of Present Illness Consult date: 05/20/21 Reason for Consult: mental status change History of Present Illness: The patient is a 65-year-old female who is seen in neurologic cons ultation on May 20, 2021, via teleneurology. History is obtained from the chart and the nurse at the bedside. The patient was reportedly brought into the emergency department because of agitation and refusal to take medications. Patient has a history of a advanced dementia. The patient reportedly has had episodes of aggression. The patient's son apparently is having difficulty caring for her at home. The patient reportedly had been in a neurobehavioral unit in [place], where she did well for a while. She subsequently was discharged and reportedly, her doctors here in [place] refused to prescribe the medications that she was receiving in [place]. In further review of the notes, the patient's apparently is her main caregiver however he currently is in the intensive care unit of another hospital. The patient's son and stepdaughter apparently do not get along and are doing a poor job of caring for the patient. CT scan of the brain was performed in the emergency department. There is no evidence of acute hemorrhage or infarct. There is marked, diffuse atrophy. Urinalysis reveals 9 white cells, moderate leukocyte esterase, many mucous. Urine drug screen is positive for marijuana. 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, EF 45-45%, UTI History of Any Multi-Drug Resistant Organisms: None Reported Past Surgical History: Unable to Obtain Additional Past Surgical History / Comment(s): Son did not know of any surgery Past Psychological History: No Psychological Hx Reported Smoking Status: Never smoker Past Alcohol Use History: None Reported Past Drug Use History: Marijuana - Past Family History Father Family Medical History: Unable to Obtain Mother Family Medical History: Unable to Obtain Medications and Allergies Home Medications Medication Instructions Recorded Confirmed Type Memantine [Namenda] 10 mg PO BID 03/09/21 05/19/21 History Famotidine 10 mg PO DAILY 05/19/21 05/19/21 History Multivit-Min/Iron/Folic/Lutein 1 tab PO DAILY 05/19/21 05/19/21 History [Centrum Silver Women Tablet] Rivastigmine 4.6MG/24Hr Patch 1 patch TOPICAL HS 05/19/21 05/19/21 History [Exelon 4.6MG/24Hr Patch] amLODIPine BESYLATE 10 mg PO DAILY 05/19/21 05/19/21 History clonazePAM 0.5 - 1 mg PO Q12HR PRN 05/19/21 05/19/21 History lisinopriL 10 mg PO DAILY 05/19/21 05/19/21 History risperiDONE 0.25 mg PO BID 05/19/21 05/19/21 History traZODone HCL 50 mg PO HS 05/19/21 05/19/21 History Allergies Allergy/AdvReac Type Severity Reaction Status Date / Time No Known Allergies Allergy Verified 05/19/21 06:19 Physical Examination - Vital Signs Vital Signs: Vital Signs Temp Pulse Resp BP Pulse Ox 05/20/21 07:08 97.6 F 75 18 104/81 98 05/19/21 21:00 98.2 F 84 16 110/72 99 Intake and Output 05/19/21 05/20/21 05/20/21 21:59 06:59 14:59 Intake Total Balance Intake: Oral Other: Voiding Method Toilet # Voids Gen.: Patient is well-nourished. She is somewhat restless. She is walking around the room. She is walking into the hallway and going into other patient's rooms. The patient has difficulty cooperating with the examination. HEENT: Head is atraumatic, normocephalic. Fundus not visualized. There is no scleral icterus. Mucous membranes are moist. Neck: Supple without carotid bruits Heart: Regular rate and rhythm Extremities: Without edema Neurological examination Mental status: Patient is awake and alert. She is able to state her name. Her speech is clear. She follows some simple commands. Cranial nerves: Pupils are equal at 2 mm and reactive. Visual allan are grossly intact. Extraocular movements are intact. There is no nystagmus. Facial sensation is intact. There is no facial asymmetry. Hearing is diminished. Shoulder shrug is symmetric. Tongue protrudes midline. Motor: Strength is not formally assessed, secondary to lack of cooperation. The patient is observed moving all 4 extremities without difficulty. Gait: Steady Results - Laboratory Findings CBC and BMP: 05/20/21 07:16 05/20/21 07:16 Abnormal Lab Findings: Abnormal Labs 05/19/21 05/19/21 05/19/21 06:36 06:36 06:36 RBC 3.65 L RDW 15.7 H Chloride 109 H POC Glucose (mg/dL) Albumin 3.3 L Urine Appearance Turbid H Urine Protein Trace H Urine Ketones Trace H Ur Leukocyte Esterase Moderate H Urine WBC 9 H Amorphous Sediment Few H Urine Mucus Many H U Marijuana (THC) Screen Detected H 05/19/21 05/19/21 09:05 13:43 RBC RDW Chloride POC Glucose (mg/dL) 377 H 139 H Albumin Urine Appearance Urine Protein Urine Ketones Ur Leukocyte Esterase Urine WBC Amorphous Sediment Urine Mucus U Marijuana (THC) Screen Assessment and Plan Assessment: 1. Advanced dementia on the potentially made worse by mild urinary tract infection Plan: 1. Case management/social work consultation for placement 2. Your treatment of urinary tract infection Thank you for allowing us to participate in care of this patient. There is no further neurologic workup indicated at this time. Neurology will sign off. Time with Patient: Greater than 30 (spent 35 minutes with patient via telemedicine)
--- NOTE | 2021-05-20 17:25 | CT ---
EXAMINATION TYPE: CT brain wo con DATE OF EXAM: 05/20/2021 COMPARISON: Yesterday HISTORY: Follow up to abnormal CT CT DLP: 1204 mGycm Automated exposure control for dose reduction was used. There is widening of the subdural space over the right cerebral hemisphere consistent with a subdural hygroma. This measures up to 10 mm in thickness. The fluid has relatively low attenuation. There is slight midline shift to the left side. There is cerebral atrophy. There is no evidence of acute intra cranial hemorrhage. The calvarium is intact. IMPRESSION: Large right sided subdural hygroma which is not significantly different than yesterday. Minimal mass effect. No evidence of acute subdural hemorrhage.
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
[2021-05-20] MEDS: MELATONIN 3 MG TABLET PO PRN (21:14)
[2021-05-20] MEDS: traZODone HCL 50 MG TAB PO SCH (21:14)
[2021-05-20] MEDS: RIVASTIGMINE 4.6MG/24HR PATCH TRANSDERM SCH (21:17)
[2021-05-20] MEDS: risperiDONE 0.5 MG TAB PO SCH (21:53)
[2021-05-21] MEDS: HALOPERIDOL LACTATE 5 MG/ML 1 ML VIAL IM PRN ×2 (01:05→05:38)
[2021-05-21] MEDS: PANTOPRAZOLE 40 MG TABLET PO SCH (11:24)
[2021-05-21] MEDS: MULTIVITAMINS, THERA 1 EACH TAB PO SCH (11:24)
[2021-05-21] MEDS: MEMANTINE 10 MG TAB PO SCH ×2 (11:24→20:30)
[2021-05-21] MEDS: risperiDONE 0.5 MG TAB PO SCH (11:24)
[2021-05-21 12:37] VITALS: BMI 25.0
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
--- NOTE | 2021-05-21 15:32 | P.PN ---
Subjective Progress Note Date: 05/21/21 H&P Date: 05/19/21 Chief Complaint: Aigitation Patient was brought to the emergency EMS. She is a poor historian. Patient was diagnosed with advanced dementia and years ago. Her son called ambulance because she was very agitated and refused to take her medication. She is only alert and oriented to herself. She denied any chest pain or shortness of br eath. She denies any abdominal pain. She denies nausea vomiting or diarrhea or constipation. Patient denied any fever or chills or cough. Blood work emergency room is unremarkable. No imaging studies done in the brain. Skin was positive for marijuana. Patient stated that she go through marijuana in her backyard. Other than that the patient not able to give me good history of present is secondary to her psychosis and agitation. Her stepdaughter and her son the patient was admitted to [facility] [place] and February and she was discharged to inpatient psych unit in [place] . Patient was discharged home after 1 week. was the main caregiver is currently in the ICU in another hospital. Seems like the patient's son doesn't get along with his carloz. Carloz wants to take the patient home and take care of her. Pending evaluation by psychiatry and social service assistant to address safe discharge plan. Interval history: 05/20 patient was seen and examined at the bedside. She is alert oriented to herself. She denied any burning with urination or increased frequency. She denies any chest pain and shortness of breath. Otherwise no acute reported changes overnight. 05/21 patient was seen and examined at the bedside. She she is awake only oriented to herself. Last night and today the patient become very agitated and combative with the medical staff at bedside sitter requiring to be restrained. Psychiatry increased her Risperdal 2 mg twice daily and added by mouth Haldol as needed psychiatry recommended transfer to geriatric psych unit Objective - Vital Signs Vital signs: Vital Signs Temp 98.4 F 05/21/21 12:30 Pulse 83 05/21/21 12:30 Resp 17 05/21/21 12:30 BP 123/85 05/21/21 12:30 Pulse Ox 98 05/21/21 12:30 Intake & Output 05/20/21 05/21/21 05/21/21 18:59 06:59 18:59 Weight 63.957 kg Other: Voiding Method Toilet Toilet Toilet # Voids 3 - Exam General: Confused. non toxic, no distress, appears older than stated age Derm: warm, dry Head: atraumatic, normocephalic, symmetric Eyes: EOMI, no lid lag, anicteric sclera Mouth: no lip lesion, mucus membranes moist Cardiovascular: S1S2 reg, no murmur, positive posterior tibial pulse bilateral, Lungs: CTA bilateral, no rhonchi, no rales , no accessory muscle use Abdominal: soft, nontender to palpation, no guarding, no appreciable organomegaly Ext: no gross muscle atrophy, no edema, no contractures Neuro: CN II-XI grossly intact, no focal neuro deficits Psych: Alert, oriented only to herself. Restless and agitated - Labs CBC & Chem 7: 05/20/21 07:16 05/20/21 07:16 Assessment and Plan Assessment: Assessment and plan: #Advanced dementia with aggressive behavior -Underlying advanced dementia -Risperdal 1 mg twice daily per psychiatry -CT of the head: Showed stable right sided subdural hygroma with 12 mm thickness which is changed compared to old exam. -normal TSH and B12 -Unremarkable urinalysis. Patient denied any dysuria or frequency. Urine culture still pending -Neuro and psych evaluation -Adult protective service was notified -Social workerWorker evaluation for safe discharge plan -Patient would need geriatric psych unit placement #Substance abuse -Patient admitted that she smokes marijuana #Hypertension -Patient blood pressure is controlled without medication will discontinue lisinopril #COPD without exacerbation #DVT prophylaxis patient is ambulatory
--- NOTE | 2021-05-21 17:47 | P.PN ---
Subjective Progress Note Date: 05/21/21 Principal diagnosis: patient was earlier seen by my colleague Dr Ivey. She was seen later around 11:45- 12:15. She was highly restless but lucid and coherent. She did not have any clu e as to what triggered the behavioral outburst She did not voice any hallucinations; she may have harbored paranoid ideas of reference asfter she was in physical restraint. She complained of being confined in bed and her limitation to adjut the angle of incline and her bed. She was unable to recall the contextual issue of her admission. MS: she was partially oriented: place full, season ; uanble to label spring or May. she recognized my presence. She did not articulate any medical issues. Cog; 2/3 insight judgment was impaired. A: full Cog 5 min test to be administered to confirm her Dementia stage. Weakness in the absence of any neurological disroder, indicate functional or de-conditioning type. A: delirium in the absence of any MED disorder, point to Alzeheimer atypical subtyp e pathology. Neuropsychiatric symptoms of AD may benefit from Rx: She may benefit from SSRI or/and GABApentin ; trazodone higher dosage may invite QT prolongation but has benefits for delirium. Plan I communicated to RN incharge [place] [facility] [place] Objective - Vital Signs Vital signs: Vital Signs Temp 98.4 F 05/21/21 12:30 Pulse 83 05/21/21 12:30 Resp 17 05/21/21 12:30 BP 123/85 05/21/21 12:30 Pulse Ox 98 05/21/21 12:30 Intake & Output 05/20/21 05/21/21 05/21/21 18:59 06:59 18:59 Weight 63.957 kg Other: Voiding Method Toilet Toilet Toilet # Voids 3 - Labs CBC & Chem 7: 05/20/21 07:16 05/20/21 07:16
[2021-05-21] MEDS: GABAPENTIN 100 MG CAP PO SCH (20:22)
[2021-05-21] MEDS: traZODone HCL 50 MG TAB PO SCH (20:22)
[2021-05-21] MEDS: RIVASTIGMINE 4.6MG/24HR PATCH TRANSDERM SCH (20:29)
[2021-05-21] MEDS: risperiDONE 1 MG TAB PO SCH (20:29)
[2021-05-22] MEDS: MEMANTINE 10 MG TAB PO SCH ×2 (09:51→20:06)
[2021-05-22] MEDS: GABAPENTIN 100 MG CAP PO SCH ×3 (09:52→20:06)
[2021-05-22] MEDS: PANTOPRAZOLE 40 MG TABLET PO SCH (09:52)
[2021-05-22] MEDS: risperiDONE 1 MG TAB PO SCH ×2 (09:52→20:05)
[2021-05-22] MEDS: MULTIVITAMINS, THERA 1 EACH TAB PO SCH (09:52)
--- NOTE | 2021-05-22 13:12 | P.PN ---
Progress Note - Text Progress Note Date: 05/22/21 Interval History: Patient was seen sitting upright in bed without any agitated behavior. Currently, the patient is alert and oriented to self only. She is not alert and oriented to place or time. She is currently not reporting any issues going to the restroom or eating her meals. She does endorse mild epigastric pain. She is otherwise not reporting any suicidal or homicidal ideation, intention, and/or plan. She is not reporting any auditory or visual hallucinations. She denies any paranoia or other delusions. As per discussion with the patient's sitter as well as nurse, the patient has been well behaved over the last 24 hours. Mental Status Exam: General Appearance: Patient appears to be stated age is alert, directable, and cooperative. Behavior: Patient is calmly seated without any agitated behavior. Off restraints. Speech: Patient's speech is fluent and nonpressured. Spontaneous with normal tone and volume. Mood/Affect: Mood is feeling okay. Affect appears to be congruent and euthymic at this time. Suicidality/Homicidality: Patient denies having any suicidal or homicidal ideation intent or plan. Perceptions: Patient denies any visual hallucinations and denies any auditory hallucinations Though content/process: There is no evidence of any delusional thought content and thought process is linear and goal-directed. Memory and concentration: Patient was alert and oriented to person only. Concentration is grossly poor. Judgment and insight: Very poor at baseline. Vital Signs Temp 98.1 F 05/22/21 11:32 Pulse 79 05/22/21 11:32 Resp 18 05/22/21 11:32 BP 97/65 05/22/21 11:32 Pulse Ox 93 L 05/22/21 11:32 Intake & Output 05/21/21 05/22/21 05/22/21 18:59 06:59 18:59 Intake Total 240 480 Balance 240 480 Weight 63.957 kg Intake: Oral 240 480 Other: Voiding Method Toilet Toilet # Voids 3 1 Assessment Major neurocognitive disorder, with behavioral disturbances Plan: -At this time patient DOES meet criteria for inpatient psychiatric admission. The patient is recommended to go to an inpatient geriatric psychiatric unit to to her diagnoses of major neurocognitive disorder with behavioral disturbances. Her symptoms appear to be uncontrolled and the patient has had significant violent outbursts placing her in those around her at risk for harm. -Patient DOES NOT have decision making capacity at this time and is unable to reason through and communicate/appreciate the risks, benefits and alternatives to treatment. -Delirium precautions recommended with patient including - avoiding use of narcotics and COST COORDINATOR sedatives, limit anticholinergic medications when possible, frequent re-orientation, minimize use of restraints, open window shades during the day and close them at night -Would recommend the following medication changes/additions: Continue Risperdal 1 mg by mouth twice a day for management of agitation and mood stabilization Continue Namenda 10 mg by mouth twice a day for major neurocognitive disorder -Continue 1:1 sitter for safety -Cannot leave AMA at this time. Patient will need a petition and certification if attempting to leave AMA. -Will continue to follow along -When medically stable, patient is eligible for transfer to a geriatric psych bed when available.
--- NOTE | 2021-05-22 17:03 | P.PN ---
Subjective Progress Note Date: 05/22/21 Principal diagnosis: confusion 65 y/o here for confusion and psychosis, followed by psychiatry. Interval history: 05/20 patient was seen and examined at the bedside. She is alert oriented to herself. She denied any burning with urination or increased frequency. She denies any chest pain and shortness of breath. Otherwise no acute reported changes overnight. 05/21 patient was seen and examined at the bedside. She she is awake only oriented to herself. Last night and today the patient become very agitated and combative with the medical staff at bedside sitter requiring to be restrained. Psychiatry increased her Risperdal 2 mg twice daily and added by mouth Haldol as needed psychiatry recommended transfer to geriatric psych unit 05/22 patient still confused. She is oriented to place but not to date. No reports of agitation. Sitter at the bedside. Objective - Vital Signs Vital signs: Vital Signs Temp 98.1 F 05/22/21 11:32 Pulse 79 05/22/21 11:32 Resp 18 05/22/21 11:32 BP 97/65 05/22/21 11:32 Pulse Ox 93 L 05/22/21 11:32 Intake & Output 05/21/21 05/22/21 05/22/21 18:59 06:59 18:59 Intake Total 240 480 Balance 240 480 Weight 63.957 kg Intake: Oral 240 480 Other: Voiding Method Toilet Toilet # Voids 3 1 - Exam Constitutional: No acute distress, conversant, pleasant Eyes:Anicteric sclerae, moist conjunctiva, no lid-lag, PERRLA, ENMT: Oropharynx clear, no erythema, exudates Neck: Supple, FROM, no masses, or JVD, No carotid bruits, No thyromegaly Lungs: Clear to auscultation, Clear to percussion, Normal respiratory effort, no accessory muscle use Cardiovascular: Heart regular in rate and rhythm, No murmurs, gallops, or rubs, No peripheral edema Abdominal: Soft, Nontender, no guarding, rebound or rigidity, Normoactive bowel sounds, No hepatomegaly, No splenomegaly, No palpable mass Skin: Normal temperature, tone, texture, turgor, no induration, No subcutaneous nodules, No rash, lesions, No ulcers Extremities: No digital cyanosis, No clubbing, Pedal pulses intact and symmetrical, Radial pulses intact and symmetrical, No calf tenderness Psychiatric: Alert and oriented to person, place but not time, impaired judgement Neuro: Muscles Strength 5/5 in all 4 extremities, Sensation to light touch grossly present throughout, Cranial nerves II-XII grossly intact, no focal sensory deficits - Labs CBC & Chem 7: 05/20/21 07:16 05/20/21 07:16 Assessment and Plan Plan: #Advanced dementia with aggressive behavior -Underlying advanced dementia -Risperdal 1 mg twice daily per psychiatry -CT of the head: Showed stable right sided subdural hygroma with 12 mm thickness which is changed compared to old exam. -normal TSH and B12 -Unremarkable urinalysis. Patient denied any dysuria or frequency. Urine culture still pending -Neuro and psych following -Adult protective service was notified -Social workerWorker evaluation for safe discharge plan -Patient would need geriatric psych unit placement #Substance abuse -Patient admitted that she smokes marijuana #Hypertension -Patient blood pressure is controlled without medication will discontinue lisinopril #COPD without exacerbation #DVT prophylaxis patient is ambulatory Awaiting certification for placement
[2021-05-22] MEDS: RIVASTIGMINE 4.6MG/24HR PATCH TRANSDERM SCH (20:05)
[2021-05-22] MEDS: traZODone HCL 50 MG TAB PO SCH (20:06)
[2021-05-23] MEDS: PANTOPRAZOLE 40 MG TABLET PO SCH (08:37)
[2021-05-23] MEDS: MEMANTINE 10 MG TAB PO SCH ×2 (08:38→21:26)
[2021-05-23] MEDS: risperiDONE 1 MG TAB PO SCH ×2 (08:38→21:26)
[2021-05-23] MEDS: MULTIVITAMINS, THERA 1 EACH TAB PO SCH (08:38)
[2021-05-23] MEDS: GABAPENTIN 100 MG CAP PO SCH ×3 (08:38→21:27)
--- NOTE | 2021-05-23 13:25 | P.PN ---
Subjective Progress Note Date: 05/23/21 Principal diagnosis: confusion 65 y/o here for confusion and psychosis, followed by psychiatry. Interval history: 05/20 patient was seen and examined at the bedside. She is alert oriented to herself. She denied any burning with urination or increased frequency. She denies any chest pain and shortness of breath. Otherwise no acute reported changes overnight. 05/21 patient was seen and examined at the bedside. She she is awake only oriented to herself. Last night and today the patient become very agitated and combative with the medical staff at bedside sitter requiring to be restrained. Psychiatry increased her Risperdal 2 mg twice daily and added by mouth Haldol as needed psychiatry recommended transfer to geriatric psych unit 05/22 patient still confused. She is oriented to place but not to date. No reports of agitation. Sitter at the bedside. 05/23: still confused, no changes. No overnight events. Objective - Vital Signs Vital signs: Vital Signs Temp 97.9 F 05/23/21 11:26 Pulse 90 05/23/21 11:26 Resp 18 05/23/21 11:26 BP 91/60 05/23/21 11:26 Pulse Ox 99 05/23/21 11:26 Intake & Output 05/22/21 05/23/21 05/23/21 18:59 06:59 18:59 Intake Total 720 Balance 720 Intake: Oral 720 Other: Voiding Method Toilet Toilet # Voids 5 1 - Exam Constitutional: No acute distress, conversant, pleasant Eyes:Anicteric sclerae, moist conjunctiva, no lid-lag, PERRLA, ENMT: Oropharynx clear, no erythema, exudates Neck: Supple, FROM, no masses, or JVD, No carotid bruits, No thyromegaly Lungs: Clear to auscultation, Clear to percussion, Normal respiratory effort, no accessory muscle use Cardiovascular: Heart regular in rate and rhythm, No murmurs, gallops, or rubs, No peripheral edema Abdominal: Soft, Nontender, no guarding, rebound or rigidity, Normoactive bowel sounds, No hepatomegaly, No splenomegaly, No palpable mass Skin: Normal temperature, tone, texture, turgor, no induration, No subcutaneous nodules, No rash, lesions, No ulcers Extremities: No digital cyanosis, No clubbing, Pedal pulses intact and symmetrical, Radial pulses intact and symmetrical, No calf tenderness Psychiatric: Alert and oriented to person, place but not time, impaired judgement Neuro: Muscles Strength 5/5 in all 4 extremities, Sensation to light touch grossly present throughout, Cranial nerves II-XII grossly intact, no focal sensory deficits - Labs CBC & Chem 7: 05/20/21 07:16 05/20/21 07:16 Assessment and Plan Plan: #Advanced dementia with aggressive behavior -Underlying advanced dementia -Risperdal 1 mg twice daily per psychiatry -CT of the head: Showed stable right sided subdural hygroma with 12 mm thickness which is changed compared to old exam. Follow up CT recommended, outpatient. -normal TSH and B12 -Unremarkable urinalysis. -Neuro and psych consulted. -Adult protective service was notified -Patient would need geriatric psych unit placement #Substance abuse -Patient admitted that she smokes marijuana #Hypertension -Patient blood pressure is controlled without medication will discontinue lisinopril and norvasc #COPD without exacerbation #DVT prophylaxis patient is ambulatory Awaiting certification for placement
--- NOTE | 2021-05-23 14:10 | P.PN ---
Progress Note - Text Progress Note Date: 05/23/21 Interval History: Patient was seen sitting upright in bed without any agitated behavior. Currently, the patient is alert and oriented to self only. The patient attempted to elope from the room but was stopped by the sitter and this provider. The patient is unable to identify what kind of building she is currently in. She appears to be pleasantly confused however is more difficult to direct today. She attempts with significant strength to open the door. She denies any issues regarding her sleep or her appetite. She reports no suicidal or homicidal ideation, intention, and/or plan. She denies any side effects of medications. Mental Status Exam: General Appearance: Patient appears to be stated age is alert, but difficult to direct. Behavior: Patient attempts to elope from her room. Speech: Patient's speech is fluent and nonpressured. Spontaneous with normal tone and volume. Mood/Affect: Mood is feeling okay. Affect appears to be congruent and euthymic at this time. Suicidality/Homicidality: Patient denies having any suicidal or homicidal ideation intent or plan. Perceptions: Patient denies any visual hallucinations and denies any auditory hallucinations Though content/process: There is no evidence of any delusional thought content and thought process is linear and goal-directed. Memory and concentration: Patient was alert and oriented to person only. Concentration is grossly poor. Judgment and insight: Very poor at baseline. Assessment Major neurocognitive disorder, with behavioral disturbances Plan: -At this time patient DOES meet criteria for inpatient psychiatric admission. The patient is recommended to go to an inpatient geriatric psychiatric unit to to her diagnoses of major neurocognitive disorder with behavioral disturbances. -Patient DOES NOT have decision making capacity at this time and is unable to reason through and communicate/appreciate the risks, benefits and alternatives to treatment. -Delirium precautions recommended with patient including - avoiding use of narcotics and DIGITAL OPERATIONS ANALYST sedatives, limit anticholinergic medications when possible, frequent re-orientation, minimize use of restraints, open window shades during the day and close them at night -Would recommend the following medication changes/additions: Increase Risperdal to 1.25 mg by mouth twice a day for management of agitation and mood stabilization Continue Namenda 10 mg by mouth twice a day for major neurocognitive disorder Continue Gabapentin 100 mg three times daily for off label anxiety -Continue 1:1 sitter for safety -Cannot leave AMA at this time. Patient will need a petition and certification if attempting to leave AMA. -Will continue to follow along when necessary. Otherwise, we will continue the current medication regimen as above. Please contact us if there is any acute change in behaviors or other concerns. -When medically stable, patient is eligible for transfer to a geriatric psych bed when available.
[2021-05-23] MEDS: traZODone HCL 50 MG TAB PO SCH (21:27)
[2021-05-23] MEDS: RIVASTIGMINE 4.6MG/24HR PATCH TRANSDERM SCH (21:30)
[2021-05-24 05:28] VITALS: RESP 16
[2021-05-24] MEDS: GABAPENTIN 100 MG CAP PO SCH ×3 (08:24→20:07)
[2021-05-24] MEDS: PANTOPRAZOLE 40 MG TABLET PO SCH (08:24)
[2021-05-24] MEDS: risperiDONE 1 MG TAB PO SCH ×2 (08:24→20:08)
[2021-05-24] MEDS: MULTIVITAMINS, THERA 1 EACH TAB PO SCH (08:24)
[2021-05-24] MEDS: MEMANTINE 10 MG TAB PO SCH ×2 (08:24→20:07)
--- NOTE | 2021-05-24 13:08 | P.PN ---
Progress Note - Text Progress Note Date: 05/24/21 Interval History: Patient was seen sitting upright in bed without any agitated behavior. Currently, the patient is alert and oriented to her first name only. She is unable to recall her last name. She is currently denying any suicidal or homicidal ideation, intention, and/or plan. She is not reporting and auditory or visual hallucinations. She denies any paranoia or other delusions. As per discussion with the nursing staff, the patient has been more calm and thomas ative over the past 12 hours. She reports no side effects of her medications per Mental Status Exam: General Appearance: Patient appears to be stated age is alert, but difficult to direct. Behavior: Patient attempts to elope from her room. Speech: Patient's speech is fluent and nonpressured. Spontaneous with normal tone and volume. Mood/Affect: Mood is feeling okay. Affect appears to be congruent and euthymic at this time. Suicidality/Homicidality: Patient denies having any suicidal or homicidal ideation intent or plan. Perceptions: Patient denies any visual hallucinations and denies any auditory hallucinations Though content/process: There is no evidence of any delusional thought content and thought process is linear and goal-directed. Memory and concentration: Patient was alert and oriented to person only. Concentration is grossly poor. Judgment and insight: Very poor at baseline. Vital Signs Temp 98.0 F 05/24/21 11:50 Pulse 116 H 05/24/21 11:50 Resp 16 05/24/21 11:50 BP 114/81 05/24/21 11:50 Pulse Ox 96 05/24/21 11:50 Intake & Output 05/23/21 05/24/21 05/24/21 18:59 06:59 18:59 Intake Total 240 Balance 240 Weight 63.957 kg Intake: Oral 240 Other: Voiding Method Toilet Toilet Toilet # Voids 4 2 Assessment Major neurocognitive disorder, with behavioral disturbances Plan: -When medically stable, patient is eligible for transfer to a geriatric psych bed when available. -At this time patient DOES meet criteria for inpatient psychiatric admission. The patient is recommended to go to an inpatient geriatric psychiatric unit to to her diagnoses of major neurocognitive disorder with behavioral disturbances. The patient has been petitioned and certified. -Patient DOES NOT have decision making capacity at this time and is unable to reason through and communicate/appreciate the risks, benefits and alternatives to treatment. -Delirium precautions recommended with patient including - avoiding use of narcotics and SCIENTIFIC ASSOCIATE sedatives, limit anticholinergic medications when possible, frequent re-orientation, minimize use of restraints, open window shades during the day and close them at night -Would recommend the following medication changes/additions: Continue Risperdal 1.25 mg by mouth twice a day for management of agitation and mood stabilization Continue Namenda 10 mg by mouth twice a day for major neurocognitive disorder Continue Gabapentin 100 mg three times daily for off label anxiety -Continue 1:1 sitter for safety -Cannot leave AMA at this time. -Psychiatry will sign off at this time. Please call us with any questions or reconsult us if necessary. Thank you for this consult.
[2021-05-24 17:06] LABS: Coronavirus SARS CoV-2 Not Detected (Not Detected)
--- NOTE | 2021-05-24 19:50 | P.DS ---
Providers Date of admission: 05/19/21 14:51 Expected date of discharge: 05/24/21 Attending physician: Tyra Chino MD Consults: 05/19/21 14:55 Consult Physician Routine Consulting Provider: Psychiatry - [facility] Psychiatry Consult Reason/Comments: agitation Do you want consulting provider notified?: Yes 05/19/21 15:10 Consult Physician Routine Consulting Provider: Malgorzata Vargas Consult Reason/Comments: altered MS Do you want consulting provider notified?: Yes Primary care physician: Stated None Hospital Course: Discharge Diagnosis: Neurocognitive disorder with aggressive behavioral disturbances-warm to inpatient psychiatric admission per psychiatry Substance abuse Hypertension COPD without exacerbation Hospital Course: Patient is a 65-year-old female history of dementia, hypertension, and prior psychiatric admissions was brought to the hospital via EMS due to agitation and refusing to take her medications. In the ER she underwent an extensive evaluation. On arrival her vital signs were within normal limits. Laboratory analysis was unremarkable. Urine drug screen was positive for marijuana. Urinalysis was negative for signs of infection. She was admitted for further monitoring. Neurology was consulted. Vitamin B12 and TSH were normal. CT head showed a right sided subdural hygroma which was a change in exam. She was seen by neurology who felt that the patient did not need a work neurologic workup at this time. She was seen by psychiatry who recommended inpatient psychiatric ad mission. She was petitioned and certified. Patient was discharged to inpatient geriatric psychiatry. Patient seen and examined at bedside with sitter present. Alert and oriented to self. Denies any pain or shortness of breath. Was seen up and ambulating the halls multiple times throughout the day. Vital signs reviewed and stable. General: non toxic, no distress, appears at stated age Derm: warm, dry Head: atraumatic, normocephalic, symmetric Eyes: EOMI, no lid lag, anicteric sclera Mouth: no lip lesion, mucus membranes moist Cardiovascular: S1S2 reg, no murmur, positive posterior tibial pulse bilateral, Lungs: CTA bilateral, no rhonchi, no rales , no accessory muscle use Abdominal: soft, nontender to palpation, no guarding, no appreciable organomegaly Ext: no gross muscle atrophy, no edema, no contractures Neuro: CN II-XI grossly intact, no focal neuro deficits Psych: Alert, oriented to self, flat affect A total of 27 minutes of time were spent preparing this complex discharge summary . Patient Condition at Discharge: Fair Plan - Discharge Summary Discharge Rx Participant: No New Discharge Prescriptions: New Gabapentin [Neurontin] 100 mg PO TID 10 Days #30 cap haloperidoL [Haldol] 2 mg PO TID PRN tab PRN Reason: Agitation risperiDONE [RisperDAL] 1.25 mg PO BID tab Continue Memantine [Namenda] 10 mg PO BID Rivastigmine 4.6MG/24Hr Patch [Exelon 4.6MG/24Hr Patch] 1 patch TOPICAL HS traZODone HCL 50 mg PO HS Famotidine 10 mg PO DAILY Multivit-Min/Iron/Folic/Lutein [Centrum Silver Women Tablet] 1 tab PO DAILY Discontinued lisinopriL 10 mg PO DAILY amLODIPine BESYLATE 10 mg PO DAILY clonazePAM 0.5 - 1 mg PO Q12HR PRN PRN Reason: Anxiety risperiDONE 0.25 mg PO BID Discharge Medication List Memantine [Namenda] 10 mg PO BID 03/09/21 [History] Famotidine 10 mg PO DAILY 05/19/21 [History] Multivit-Min/Iron/Folic/Lutein [Centrum Silver Women Tablet] 1 tab PO DAILY 05/19/21 [History] Rivastigmine 4.6MG/24Hr Patch [Exelon 4.6MG/24Hr Patch] 1 patch TOPICAL HS 05/19/21 [History] traZODone HCL 50 mg PO HS 05/19/21 [History] Gabapentin [Neurontin] 100 mg PO TID 10 Days #30 cap 05/23/21 [Rx] haloperidoL [Haldol] 2 mg PO TID PRN tab 05/24/21 [Rx] risperiDONE [RisperDAL] 1.25 mg PO BID tab 05/24/21 [Rx] Follow up Appointment(s)/Referral(s): None,Stated [Primary Care Provider] - 1-2 days Patient Instructions/Handouts: Gabapentin (By mouth), Heart Healthy Diet (DC) Activity/Diet/Wound Care/Special Instructions: Activity: as tolerated Diet: heart healthy Special Instructions: Clothes are in locker 17. Discharge Disposition: TRANSFER TO PSYCH HOSP/UNIT
[2021-05-24] MEDS: RIVASTIGMINE 4.6MG/24HR PATCH TRANSDERM SCH (20:08)
[2021-05-24] MEDS: traZODone HCL 50 MG TAB PO SCH (20:09)
[2021-05-24 20:17] VITALS: BP 134/85; PULSE 110; TEMP 98.5
== END 2021-05-24 20:15 | DRG 884 ==
LOC: EC 06:09 → 5NMEDONC 07:17 → OBSVTOIN 14:51
PROVIDERS: ADMIT Internal Medicine; ATTEND Internal Medicine
DX: F01.51 Vascular dementia, unspecified severity, with behavioral disturbance (principal); G96.08 Other cranial cerebrospinal fluid leak; N39.0 Urinary tract infection, site not specified; F05 Delirium due to known physiological condition; R45.1 Restlessness and agitation; F12.10 Cannabis abuse, uncomplicated; I71.4 Abdominal aortic aneurysm, without rupture; I10 Essential (primary) hypertension; J44.9 Chronic obstructive pulmonary disease, unspecified; Z78.1 Physical restraint status; Z79.899 Other long term (current) drug therapy; Z86.16 Personal history of COVID-19; Z20.822 Contact with and (suspected) exposure to COVID-19; Z87.440 Personal history of urinary (tract) infections; Z74.2 Need for assistance at home and no other household member able to render care
CPT/HCPCS: 36415; 70450; 80053; 80306; 80320; 81001; 82607; 83036; 84443; 84484; 85025; 85610; 85730; 93005; 96360; 96361; 99285